=== PATIENT | male | born 1990 | race Caucasian/White ===

== ENCOUNTER 2023-12-03 20:02 | Emergency (ER) | payer MEDICAID ==
[~2023-12-03] VITALS: Ht 177.8 cm; Wt 71.5 kg
[2023-12-03 20:15] VITALS: BP 124/74; PULSE 98; TEMP 100.9; O2SAT 97
[2023-12-03 20:47] VITALS: RESP 16
== END 2023-12-03 21:53 | disposition home or self-care (01) ==
LOC: ER 20:09
DX: U07.1 COVID-19 (principal)
CPT/HCPCS: 36415; 87502; 87503; 87811; 99283

== ENCOUNTER 2023-12-06 16:06 | Emergency (ER) | payer MEDICAID ==
[~2023-12-06] VITALS: Ht 185.4 cm; Wt 81.8 kg
[2023-12-06 16:24] VITALS: BP 123/86; PULSE 78; RESP 18; TEMP 97.8; O2SAT 98
== END 2023-12-06 16:46 | disposition home or self-care (01) ==
LOC: ER 16:07
DX: U07.1 COVID-19 (principal)
CPT/HCPCS: 99282